=== PATIENT | male | born 1945 | race Caucasian/White ===

== ENCOUNTER → 2016-08-08 | Outpatient (CLI) | payer MEDICARE, OTHER ==
[2016-08-08 11:42] LABS: CREATININE RESULT 0.64 mg/dL (0.52-1.25)
== END ==
LOC: OD 10:29
PROVIDERS: ATTEND Urology
DX: C67.9 Malignant neoplasm of bladder, unspecified (principal); C61 Malignant neoplasm of prostate
CPT/HCPCS: 36415; 82565; 84153

== ENCOUNTER → 2016-08-23 | Outpatient (CLI) | payer MEDICARE, OTHER | LOC: RAD 08:19 | PROVIDERS: ATTEND Urology | DX: R31.29 Other microscopic hematuria (principal) | CPT/HCPCS: 74177 ==

== ENCOUNTER 2016-10-15 09:54 | Emergency (ER) | payer OTHER, MEDICARE ==
--- NOTE | 2016-10-15 10:11 | ER Document Report ---
ED Medical Screen (RME) - General Stated Complaint: DIFFICULTY BREATHING Mode of Arrival: Ambulatory Information source: Patient Notes: Patient presents to the emergency department with complaints of shortness of breath. He reports the SOB comes and goes. Patient had shoulder replacement on October 03. Patient denies chest pain. No other complaints such as vomiting diarrhea. Patient does have a cardiac history. I have consulted the attending provider per [facility] guidelines I have greeted and performed a rapid initial assessment of this patient. A comprehensive ED assessment and evaluation of the patient, analysis of test results and completion of the medical decision making process will be conducted by additional ED providers. TRAVEL OUTSIDE OF THE [place] IN LAST 30 DAYS: No - Related Data Allergies/Adverse Reactions: morphine Allergy (Verified 10/15/16 10:09) Penicillins Allergy (Verified 10/15/16 10:09) Physical Exam - Vital signs Vitals: Temp Pulse Resp BP Pulse Ox 97.8 F 73 16 147/74 H 94 10/15/16 10:02 10/15/16 10:02 10/15/16 10:02 10/15/16 10:02 10/15/16 10:02 Course - Vital Signs Vital signs: Temp Pulse Resp BP Pulse Ox 97.8 F 73 16 147/74 H 94 10/15/16 10:02 10/15/16 10:02 10/15/16 10:02 10/15/16 10:02 10/15/16 10:02
[2016-10-15] MEDS ORDERED: IPRATROPIUM/ALBUTEROL 0.5-2.5 MG/3 ML AMPUL NEB ONE (10:40)
[2016-10-15 10:58] LABS: ABSOLUTE BASOPHILS # (AUTO) 0.1 10^3/uL (0.0-0.2); ABSOLUTE EOSINOPHILS # (AUTO) 0.3 10^3/uL (0.0-0.6); ABSOLUTE LYMPHOCYTES (AUTO) 2.7 10^3/uL (0.5-4.7); ABSOLUTE NEUT (AUTO) 6.8 10^3/uL (1.7-8.2); BASOPHILS % (AUTO) 0.7 % (0-2); HEMATOCRIT 37.6 % (37.9-51.0); HEMOGLOBIN 12.4 g/dL (13.5-17.0); HGB HCT DIFFERENCE -0.4; LYMPHOCYTES % (AUTO) 24.9 % (13-45); MEAN CORPUSCULAR HEMOGLOBIN 30.9 pg (27.0-33.4); MEAN CORPUSCULAR HGB CONC 32.9 g/dL (32.0-36.0); MEAN CORPUSCULAR VOLUME 94 fl (80-97); MONOCYTES % (AUTO) 9.1 % (3-13); RED CELL DISTRIBUTION WIDTH 14.1 % (11.5-14.0); SEGMENTED NEUTROPHILS % (AUTO) 62.3 % (42-78); WHITE BLOOD COUNT 10.9 10^3/uL (4.0-10.5)
[2016-10-15 11:13] LABS: ALANINE AMINOTRANSFERASE 63 U/L (21-72); ALBUMIN 3.7 g/dL (3.5-5.0); ALKALINE PHOSPHATASE 60 U/L (38-126); ANION GAP 9 (5-19); ASPARTATE AMINO TRANSFERASE 35 U/L (17-59); BILIRUBIN,TOTAL 0.9 mg/dL (0.2-1.3); BLOOD UREA NITROGEN 16 mg/dL (7-20); CALCIUM 9.7 mg/dL (8.4-10.2); CARBON DIOXIDE 30 mmol/L (22-30); CHLORIDE 103 mmol/L (98-107); CREATINE KINASE 282 U/L (55-170); CREATININE RESULT 0.55 mg/dL (0.52-1.25); GLUCOSE 97 mg/dL (75-110); POTASSIUM 4.2 mmol/L (3.6-5.0); TOTAL PROTEIN 6.6 g/dL (6.3-8.2)
[2016-10-15 11:14] LABS: PROTHROMBIN TIME 12.8 SEC (11.4-15.4)
[2016-10-15 11:15] LABS: PARTIAL THROMBOPLASTIN TIME 29.4 SEC (23.5-35.8)
[2016-10-15 11:25] LABS: CREATINE KINASE MB 1.05 ng/mL (<4.55)
[2016-10-15 11:26] LABS: TROPONIN I < 0.012 ng/mL
--- NOTE | 2016-10-15 13:24 | ER Document Report ---
ED General - General Chief Complaint: Shortness Of Breath Stated Complaint: DIFFICULTY BREATHING Mode of Arrival: Ambulatory TRAVEL OUTSIDE OF THE [place] IN LAST 30 DAYS: No - HPI Patient complains to provider of: shortness of breath Notes: Patient coming in with recent shoulder surgery not complaining of shortness of breath. Patient has a history of tobacco use in the past denies history of emphysema. Patient states he has been using his incentive spirometer. Patient states the shortness of breath has gradually increase with more frequent episodes over the last few days. Denies chest pain denies fevers chills nausea vomiting diarrhea abdominal pain. - Related Data Allergies/Adverse Reactions: morphine Allergy (Verified 10/15/16 10:09) Penicillins Allergy (Verified 10/15/16 10:09) Past Medical History - General Information source: Patient - Social History Smoking Status: Unknown if Ever Smoked Chew tobacco use (# tins/day): No Frequency of alcohol use: None Drug Abuse: None Family History: Reviewed & Not Pertinent Patient has suicidal ideation: No Patient has homicidal ideation: No - Past Medical History Cardiac Medical History: Reports: Hx Hypercholesterolemia, Hx Hypertension Renal/ Medical History: Denies: Hx Peritoneal Dialysis Past Surgical History: Reports: Hx Appendectomy, Hx Orthopedic Surgery, Hx Tonsillectomy Review of Systems - Review of Systems Constitutional: No symptoms reported EENT: No symptoms reported Cardiovascular: No symptoms reported Respiratory: Short of breath Gastrointestinal: No symptoms reported Genitourinary: No symptoms reported Male Genitourinary: No symptoms reported Musculoskeletal: No symptoms reported Skin: No symptoms reported Hematologic/Lymphatic: No symptoms reported Neurological/Psychological: No symptoms reported -: Yes All other systems reviewed and negative Physical Exam - Vital signs Vitals: Temp Pulse Resp BP Pulse Ox 97.8 F 73 16 147/74 H 94 10/15/16 10:02 10/15/16 10:02 10/15/16 10:02 10/15/16 10:02 10/15/16 10:02 Interpretation: Normal - General General appearance: Appears well, Alert - HEENT Head: Normocephalic, Atraumatic Eyes: Normal Pupils: PERRL - Respiratory Respiratory status: No respiratory distress Chest status: Nontender Breath sounds: Normal Chest palpation: Normal - Cardiovascular Rhythm: Regular Heart sounds: Normal auscultation Murmur: No - Abdominal Inspection: Normal Distension: No distension Bowel sounds: Normal Tenderness: Nontender Organomegaly: No organomegaly - Back Back: Normal, Nontender - Extremities General upper extremity: Normal color, Normal ROM, Normal temperature. No: Normal inspection - Left Shoulder in sling from surgery no signs of infection, Nontender - Postsurgical tenderness left shoulder General lower extremity: Normal inspection, Nontender, Normal color, Normal ROM , Normal temperature, Normal weight bearing. No: Dunia's sign - Neurological Neuro grossly intact: Yes Cognition: Normal Orientation: AAOx4 Pedro Coma Scale Eye Opening: Spontaneous Pedro Coma Scale Verbal: Oriented Pedro Coma Scale Motor: Obeys Commands Monarch Coma Scale Total: 15 Speech: Normal Motor strength normal: LUE, RUE, LLE, RLE Sensory: Normal - Psychological Associated symptoms: Normal affect, Normal mood - Skin Skin Temperature: Warm Skin Moisture: Dry Skin Color: Normal Course - Re-evaluation Re-evalutation: 10/15/16 17:57 Patient is evaluation negative EKG negative troponin negative lab work with a negative CTA. More likely patient is experiencing postoperative dyspnea from not using his incentive spirometer adequately. Patient was encouraged to use incentive spirometer. Patient was discharged home with also albuterol inhaler. 10/15/16 17:58 Ambulated without difficulty - Vital Signs Vital signs: Temp Pulse Resp BP Pulse Ox 98.0 F 73 16 146/74 H 92 10/15/16 14:15 10/15/16 14:15 10/15/16 14:15 10/15/16 14:15 10/15/16 14:15 - Laboratory Result Diagrams: 10/15/16 10:38 10/15/16 10:38 Laboratory results interpreted by me: 10/15/16 10/15/16 10:38 10:38 WBC 10.9 H RBC 4.00 L Hgb 12.4 L Hct 37.6 L RDW 14.1 H Creatine Kinase 282 H Discharge - Discharge Clinical Impression: postop dyspnea, Wheezing Condition: Good Disposition: HOME, SELF-CARE Additional Instructions: Please use the inhaler that we gave you here in the ER 2 puffs every 4 hours for shortness of breath. Please make sure that you're using your incentive spirometer 5-10 deep breaths every TV commercial. Your laboratory today and CT scan of the chest shows no signs of any significant pathology. Please follow-up with your surgeon/physician as needed. Referrals: JORGITO JARAMILLO MD [Primary Care Provider] - Follow up in 3-5 days
[2016-10-15] MEDS ORDERED: ALBUTEROL SULFATE HFA (90 MCG/PUFF) 8 GM MDI (1 MDI/ER DISP) IH ONE (13:26)
--- NOTE | 2016-10-15 13:41 | EKG REPORT ---
SEVERITY:- OTHERWISE NORMAL ECG - SINUS RHYTHM VENTRICULAR PREMATURE COMPLEX : Confirmed by: Raffaele Guaman 15-Oct-2016 13:41:15
[2016-10-15 14:26] VITALS: BP 146/74
== END 2016-10-15 14:26 | disposition home or self-care (01) ==
LOC: ER 09:54
DX: R06.02 Shortness of breath (principal); R06.00 Dyspnea, unspecified; R06.2 Wheezing; Z88.6 Allergy status to analgesic agent; Z88.0 Allergy status to penicillin
CPT/HCPCS: 93005; 94640; 99285; 36415; 82553; 82550; 85025; 85610; 85730; 80053; 84484; 71275; 93010; J3490; J7620

== ENCOUNTER → 2017-01-29 | Outpatient (CLI) | payer MEDICARE, OTHER | LOC: OD 10:56 | PROVIDERS: ATTEND Urology | DX: C61 Malignant neoplasm of prostate (principal) | CPT/HCPCS: 36415; 84153 ==

== ENCOUNTER 2018-04-13 17:48 | Inpatient (IN) | payer MEDICARE, OTHER ==
[2018-04-13] MEDS ORDERED: ASPIRIN 81 MG TABLET, CHEWABLE PO ONE (18:37)
[2018-04-13] MEDS ORDERED: NITROGLYCERIN 0.4 MG/TAB 25 TAB/BOTTLE SL PRN (18:38)
[2018-04-13] MEDS ORDERED: RINGERS SOLUTION,LACTATED 1,000 ML IV ONE (18:54)
--- NOTE | 2018-04-13 18:58 | ER Document Report ---
ED General - General Chief Complaint: Chest Pain > 30 Stated Complaint: CHEST PAIN Time Seen by Provider: 04/13/18 18:37 Notes: Patient is a 73-year-old male with a past medical history of coronary artery disease, hypertension, hyperlipidemia, who presents with palpitations, lightheadedness and chest pain that started at approximately 1700. The patient states that the symptoms started abruptly and has been ongoing since that time. He describes it as a pressure-like sensation over the left side of his chest rating into the left upper extremity. He denies a history of similar symptoms in the past. Nothing improves or worsens his pain. He notes that it has somewhat diminished since onset. He denies any unilateral leg swelling, hemoptysis, but does note some associated shortness of breath. No history of DVT or pulmonary embolus. He has not contacted his primary care doctor regarding today's concerns. TRAVEL OUTSIDE OF THE [place] IN LAST 30 DAYS: No - Related Data Allergies/Adverse Reactions: morphine Allergy (Verified 04/13/18 17:48) Penicillins Allergy (Verified 04/13/18 17:48) Past Medical History - General Information source: Patient - Social History Smoking Status: Former Smoker Frequency of alcohol use: None Drug Abuse: None Lives with: Spouse/Significant other Family History: Reviewed & Not Pertinent - Past Medical History Cardiac Medical History: Reports: Hx Hypercholesterolemia, Hx Hypertension Renal/ Medical History: Denies: Hx Peritoneal Dialysis Past Surgical History: Reports: Hx Appendectomy, Hx Orthopedic Surgery, Hx Tonsillectomy Review of Systems - Review of Systems Notes: Constitutional: Negative for fever. HENT: Negative for sore throat. Eyes: Negative for visual changes. Cardiovascular: Positive for chest pain. Respiratory: Positive for shortness of breath. Gastrointestinal: Negative for abdominal pain, vomiting or diarrhea. Genitourinary: Negative for dysuria. Musculoskeletal: Negative for back pain. Skin: Negative for rash. Neurological: Negative for headaches, weakness or numbness. 10 point ROS negative except as marked above and in HPI. Physical Exam - Vital signs Vitals: Temp Pulse Resp BP Pulse Ox 98.3 F 129 H 18 120/77 92 04/13/18 18:03 04/13/18 18:03 04/13/18 18:03 04/13/18 18:03 04/13/18 18:03 Interpretation: Tachycardic Notes: PHYSICAL EXAMINATION: GENERAL: Appears slightly uncomfortable but no acute distress HEAD: Atraumatic, normocephalic. EYES: Pupils equal round and reactive to light, extraocular movements intact, sclera anicteric, conjunctiva are normal. ENT: nares patent, oropharynx clear without exudates. Moderately dry mucous membranes. NECK: Normal range of motion, supple without lymphadenopathy LUNGS: Breath sounds clear to auscultation bilaterally and equal. No wheezes rales or rhonchi. HEART: Irregular regular tachycardia without murmurs ABDOMEN: Soft, nontender, normoactive bowel sounds. No guarding, no rebound. No masses appreciated. EXTREMITIES: Normal range of motion, no pitting or edema. No cyanosis. NEUROLOGICAL: No focal neurological deficits. Moves all extremities spontaneously and on command. PSYCH: Normal mood, normal affect. SKIN: Warm, Dry, normal turgor, no rashes or lesions noted. Course - Re-evaluation Re-evalutation: 04/13/18 18:56 Patient presents with new onset chest pain of the left side of the chest described as a squeezing, pressure-like sensation with radiation to left upper extremity with associated shortness of breath. Symptoms that started abruptly prior to arrival and have waned somewhat since that time. Patient has a history of a prior CA, stents placed 18 years ago but has had no recurrence of CA events since that time. He had a stress test in August which was noted to be normal. He denies any history of DVT or pulmonary embolus. Denies any pleuritic pain. No unilateral leg swelling. Primary concern at this point is patient does arrive quite tachycardic. Initial EKG is consistent with atrial flutter versus A. fib. Chest x-ray pending as are labs. Initial EKG without ischemic changes. Will also start the patient on diltiazem given his persistent tachycardia with associated lightheadedness and shortness of breath. Given the need for a diltiazem infusion, ongoing prominent tachycardia and chest pain the patient is considered in guarded condition and will require recurrent reassessments. 04/13/18 19:23 Patient's chest pain has effectively resolved. Waiting for diltiazem infusion to been initiated. Chest x-ray clear. Labs pending. Will continue to reassess. 04/13/18 20:52 Patient is now rate controlled, current rate in the 80s. Patient currently is completely asymptomatic, states that he feels much improved after rate control. I discussed this case with the hospitalist Dr. Garcia who is excepted the patient for admission. - Vital Signs Vital signs: Temp Pulse Resp BP Pulse Ox 98.3 F 129 H 16 112/73 94 04/13/18 18:03 04/13/18 18:03 04/13/18 20:11 04/13/18 20:11 04/13/18 20:11 - Laboratory Result Diagrams: 04/13/18 18:14 04/13/18 18:14 Laboratory results interpreted by me: 04/13/18 04/13/18 18:14 18:14 WBC 11.0 H Seg Neutrophils % 40.6 L Monocytes % 13.5 H Absolute Monocytes 1.5 H Glucose 126 H - Diagnostic Test Radiology reviewed: Image reviewed, Reports reviewed Radiology results interpreted by me: 04/13/18 19:40 Chest x-ray: No acute infiltrate or pneumothorax - EKG Interpretation by Me Additional EKG results interpreted by me: 04/13/18 19:41 Atrial fibrillation, rate 127. No ST elevations or depressions. QTC is 483. Critical Care Note - Critical Care Note Total time excluding time spent on procedures (mins): 37 Comments: Critical care time spent obtaining history from patient or surrogate, discussions with consultants, development of treatment plan with patient or surrogate, evaluation of patient's response to treatment, examination of patient , ordering and performing treatments and interventions, ordering and review of laboratory studies, re-evaluation of patient's condition, ordering and review of radiographic studies and review of old charts Discharge - Discharge Clinical Impression: Atrial fibrillation with rapid ventricular response Chest pain Qualifiers: Chest pain type: unspecified Qualified Code(s): R07.9 - Chest pain, unspecified Condition: Fair Disposition: ADMITTED INPATIENT Admitting Provider: Hospitalist Unit Admitted: Telemetry Referrals: SHINE DU MD [Primary Care Provider] - Follow up as needed
[2018-04-13] MEDS ORDERED: DILTIAZEM HCL/D5W 125 MG/125 ML RTUINJ IV PRN (19:23)
[2018-04-13] MEDS ORDERED: DILTIAZEM HCL INJ 25 MG/5 ML VIAL IV ONE (19:23)
--- NOTE | 2018-04-13 19:27 | RADIOLOGY REPORT (SQ) ---
EXAM DESCRIPTION: CHEST SINGLE VIEW COMPLETED DATE/TIME: 04/13/2018 7:01 pm REASON FOR STUDY: chest pain COMPARISON: None. EXAM PARAMETERS: NUMBER OF VIEWS: One view. TECHNIQUE: Single frontal radiographic view of the chest acquired. RADIATION DOSE: NA LIMITATIONS: None. FINDINGS: LUNGS AND PLEURA: No opacities, masses or pneumothorax. No pleural effusion. MEDIASTINUM AND HILAR STRUCTURES: No masses. Contour normal. HEART AND VASCULAR STRUCTURES: Heart normal in size. Normal vasculature. BONES: No acute findings. HARDWARE: The shoulder prosthesis. OTHER: No other significant finding. IMPRESSION: NO ACUTE RADIOGRAPHIC FINDING IN THE CHEST. TECHNICAL DOCUMENTATION: JOB ID: [id number] [employer]- All Rights Reserved Reading location - IP/workstation name: [email or web address]
[2018-04-13 19:35] LABS: ABSOLUTE BASOPHILS # (AUTO) 0.1 10^3/uL (0.0-0.2); ABSOLUTE EOSINOPHILS # (AUTO) 0.6 10^3/uL (0.0-0.6); ABSOLUTE LYMPHOCYTES (AUTO) 4.4 10^3/uL (0.5-4.7); ABSOLUTE MONOCYTES (AUTO) 1.5 10^3/uL (0.1-1.4); ABSOLUTE NEUT (AUTO) 4.4 10^3/uL (1.7-8.2); EOSINOPHILS % (AUTO) 5.2 % (0-6); HEMATOCRIT 44.9 % (37.9-51.0); HEMOGLOBIN 15.7 g/dL (13.5-17.0); LYMPHOCYTES % (AUTO) 39.7 % (13-45); MEAN CORPUSCULAR HEMOGLOBIN 33.4 pg (27.0-33.4); MEAN CORPUSCULAR HGB CONC 34.9 g/dL (32.0-36.0); MEAN CORPUSCULAR VOLUME 96 fl (80-97); MONOCYTES % (AUTO) 13.5 % (3-13); PLATELET COUNT 287 10^3/uL (150-450); RED BLOOD COUNT 4.69 10^6/uL (4.35-5.55); RED CELL DISTRIBUTION WIDTH 13.9 % (11.5-14.0); SEGMENTED NEUTROPHILS % (AUTO) 40.6 % (42-78); TOTAL CELLS COUNTED % (AUTO) 100 %
[2018-04-13 19:40] LABS: INTERNATIONAL RATION (INR) 0.86; PROTHROMBIN TIME 12.2 SEC (11.4-15.4)
[2018-04-13 19:41] LABS: PARTIAL THROMBOPLASTIN TIME 28.5 SEC (23.5-35.8)
[2018-04-13] MEDS ORDERED: DILTIAZEM HCL/D5W 125 MG/125 ML RTUINJ IV ONE (19:42)
[2018-04-13 20:02] LABS: BLOOD UREA NITROGEN 17 mg/dL (7-20)
[2018-04-13 20:26] LABS: ANION GAP 11 (5-19); CALCIUM 8.9 mg/dL (8.4-10.2); CARBON DIOXIDE 25 mmol/L (22-30); CHLORIDE 103 mmol/L (98-107); GLUCOSE 126 mg/dL (75-110); POTASSIUM 4.2 mmol/L (3.6-5.0); SODIUM 138.6 mmol/L (137-145)
[2018-04-13] MEDS ORDERED: PROMETHAZINE HCL 25 MG TABLET PO PRN (21:58)
[2018-04-13] MEDS ORDERED: MAG HYDROX/AL HYDROX/SIMETH SUSP 30 ML UDCUP PO PRN (21:58)
[2018-04-13] MEDS ORDERED: ACETAMINOPHEN 325 MG TABLET PO PRN (21:58)
[2018-04-13] MEDS ORDERED: TEMAZEPAM 7.5 MG CAPSULE PO PRN (21:58)
[2018-04-13] MEDS ORDERED: PROMETHAZINE HCL INJ 25 MG/1 ML VIAL IV PRN (21:58)
[2018-04-13] MEDS ORDERED: DILTIAZEM HCL 30 MG TABLET PO ONE (22:45)
--- NOTE | 2018-04-13 22:47 | EKG REPORT ---
SEVERITY:- ABNORMAL ECG - SINUS TACHYCARDIA. 127 BORDERLINE PROLONGED QT INTERVAL NONSPECIFIC ST-T CHANGES ANTEROLATERAL ST CHANGES. : Confirmed by: Cortez Angelo MD 13-Apr-2018 22:46:22
--- NOTE | 2018-04-13 22:53 | PDOC H&P ---
History of Present Illness Admission Date/PCP: 04/13/18 21:28 SHINE DU MD (urologist) Patient complains of: palpitations History of Present Illness: JOSUE LLOYD is a 73 year old male tells me that around 5 PM he was playing video games in the computer when suddenly he started with left chest side tightness, radiated to the left shoulder, 67/10 intensity, associated with palpitations. He took his pulse and noted that was elevated, he does not know how high was it. He took 2 nitroglycerin and the pain relief a little bit. Denies any similar symptoms in the past. Symptoms were associated with the dizziness and at some point felt like a blackout. Denies nausea, vomiting, diarrhea, fever, chills, patient has a urostomy bag secondary to bladder cancer. Has history of [place] in 1999 with 2 stents placed in [place]. Was initiated on Cardizem drip and her current heart rate is around 90s. Patient declines any form of anticoagulation or antiplatelets including aspirin as gave him a very bad bleeding. Past Medical History Cardiac Medical History: Reports: Coronary Artery Disease, Myocardial Infarction - 1999 with 12 stents placed, Hyperlipidema, Hypertension EENT Medical History: Reports: Ears - Hearing impairment Neurological Medical History: Reports: Other - Lower body neuropathy Spondylolisthesis Plantar fasciitis Malignancy Medical History: Reports: Other - Bladder cancer Prostate cancer Musculoskeltal Medical History: Reports: Other - Hammertoe Rotator cuff Psychiatric Medical History: Reports: Post Traumatic Stress Disorder Past Surgical History Past Surgical History: Radical cystectomy 2009 Radical [id number] Spondylolisthesis surgery Left shoulder replacement 2017 Past Surgical History: Reports: Appendectomy, Orthopedic Surgery, Splenectomy, Tonsillectomy, Other - Tonsillectomy Left rotator cuff knee Arthroscopy Bladder cystectomy Social History Lives with: Spouse/Significant other Smoking Status: Former Smoker Frequency of Alcohol Use: None Hx Recreational Drug Use: No Family History Family History: Reviewed & Not Pertinent Parental Family History Reviewed: Yes Children Family History Reviewed: NA Sibling(s) Family History Reviewed.: NA Medication/Allergy Allergies/Adverse Reactions: morphine Allergy (Verified 04/13/18 17:48) Penicillins Allergy (Verified 04/13/18 17:48) Review of Systems Review of Systems: As outlined in the HPI, others negative Physical Exam Vital Signs: Temp Pulse Resp BP Pulse Ox 98.3 F 129 H 19 116/49 L 95 04/13/18 18:03 04/13/18 18:03 04/13/18 21:41 04/13/18 21:41 04/13/18 21:41 Additional comments: General appearance: Well-developed, well-nourished, alert and cooperative, and appears to be in no acute distress Head: Normocephalic Eyes: PEERL, EOMI, vision is grossly intact. Ears: External auditory canal and tympanic membranes clear, hearing grossly intact. Nose: No nasal discharge. Throat: Oral cavity and pharynx normal. No inflammation, swelling, exudate or lesions. Neck: Neck supple, nontender without lymphadenopathy, masses or thyromegaly. Cardiac: Normal S1 and S2. No S3, S4 or murmurs. Rhythm is irregular and mild tachycardic. There is no peripheral edema, cyanosis or pallor. Extremities are warm and well perfused. Capillary refill is less than 2 seconds. No carotid bruits. Lungs: Clear to auscultation and percussion without rales, rhonchi, wheezing or diminished breath sounds. Not using accessory muscles. Abdomen: Positive bowel sounds. Soft. Nondistended, nontender. No guarding or rebound. No masses. No hepatosplenomegaly Extremities: No significant deformity or joint abnormality. No edema. Peripheral pulses intact. No varicosities. Neurological: Cranial nerves II through XII grossly intact. Strength and sensation symmetric and intact throughout. Reflexes 2+ throughout. Skin: Skin normal color, texture and turgor with no lesions or eruptions, warm and dry. Psychiatric: The mental examination revealed the patient was oriented to person , place, and time. The patient was able to demonstrate good judgment on recent , without hallucinations, abnormal affect or abnormal behaviors. Results Laboratory Results: 04/13/18 04/13/18 04/13/18 18:14 18:14 18:14 WBC 11.0 H RBC 4.69 Hgb 15.7 Hct 44.9 MCV 96 MCH 33.4 MCHC 34.9 RDW 13.9 Plt Count 287 Seg Neutrophils % 40.6 L Lymphocytes % 39.7 Monocytes % 13.5 H Eosinophils % 5.2 Basophils % 1.0 Absolute Neutrophils 4.4 Absolute Lymphocytes 4.4 Absolute Monocytes 1.5 H Absolute Eosinophils 0.6 Absolute Basophils 0.1 PT 12.2 INR 0.86 APTT 28.5 Sodium 138.6 Potassium 4.2 Chloride 103 Carbon Dioxide 25 Anion Gap 11 BUN 17 Creatinine 0.65 Est GFR ( Amer) > 60 Est GFR (Non-Af Amer) > 60 Glucose 126 H Calcium 8.9 EKG Comments: EKG shows atrial fibrillation with a rate of 127 bpm Impressions: Chest X-Ray 04/13/18 18:38 IMPRESSION: NO ACUTE RADIOGRAPHIC FINDING IN THE CHEST. Assessment & Plan - Diagnosis (1) Atrial fibrillation with rapid ventricular response Is this a current diagnosis for this admission?: Yes Plan: New onset rapid atrial fibrillation. Initial heart rate in the 180s, was initiated on Cardizem infusion now his heart rate is in the 90s, patient is asymptomatic. We will go ahead and start him on 30 mg p.o. Cardizem sure the release followed by 120 mg p.o. Cardizem daily. Cardiology will be consulted with Dr. Ferrer. Place order for TSH, echocardiogram, cardiac enzymes 3, urine drug screen, urine analysis, lipid panel and hemoglobin A1c. CHADSVASC score is 2, however the patient declines anticoagulation and or aspirin as tells me he had a very bad bleeding. Psychology Professor Dr. Yuri Gaines in [place] (2) Hypertension Is this a current diagnosis for this admission?: Yes Plan: Continue with lisinopril (3) Hyperlipidemia Is this a current diagnosis for this admission?: Yes Plan: Continue with Lipitor - Time Time Spent: 30 to 50 Minutes - Inpatient Certification Based on my medical assessment, after consideration of the patient's comorbidities, presenting symptoms, or acuity I expect that the services needed warrant INPATIENT care.: Yes I certify that my determination is in accordance with my understanding of Medicare's requirements for reasonable and necessary INPATIENT services [42 CFR 412.3e].: Yes Medical Necessity: Need Close Monitoring Due to Risk of Patient Decompensation
[2018-04-13 23:31] LABS: APPEARANCE,URINE CLEAR; BILIRUBIN,URINE NEGATIVE (NEGATIVE); COLOR,URINE YELLOW; GLUCOSE, URINE NEGATIVE (NEGATIVE); KETONES,URINE NEGATIVE (NEGATIVE); LEUKOCYTE ESTERASE,URINE NEGATIVE (NEGATIVE); NITRITE,URINE NEGATIVE (NEGATIVE); PROTEIN,URINE 30 mg/dL (NEGATIVE); URINE SPECIFIC GRAVITY 1.014; UROBILINOGEN,URINE NEGATIVE mg/dL (<2.0)
[2018-04-13 23:59] LABS: URINE AMPHETAMINES SCREEN NEGATIVE; URINE BARBITURATES SCREEN NEGATIVE; URINE BENZODIAZEPINES SCREEN NEGATIVE; URINE COCAINE SCREEN NEGATIVE; URINE MARIJUANA (THC) SCREEN NEGATIVE; URINE METHADONE SCREEN NEGATIVE; URINE PHENCYCLIDINE SCREEN NEGATIVE
[2018-04-14 06:19] LABS: INTERNATIONAL RATION (INR) 0.93; PARTIAL THROMBOPLASTIN TIME 29.2 SEC (23.5-35.8); PROTHROMBIN TIME 12.9 SEC (11.4-15.4)
[2018-04-14 06:37] LABS: ANION GAP 7 (5-19); BLOOD UREA NITROGEN 14 mg/dL (7-20); CARBON DIOXIDE 25 mmol/L (22-30); CHLORIDE 107 mmol/L (98-107); GLUCOSE 96 mg/dL (75-110); PHOSPHORUS 3.7 mg/dL (2.5-4.5); POTASSIUM 4.3 mmol/L (3.6-5.0); SODIUM 139.2 mmol/L (137-145); TRIGLYCERIDES 195 mg/dL (<150)
[2018-04-14 06:48] LABS: DIRECT LDL 77 mg/dL (<100)
[2018-04-14] MEDS ORDERED: DILTIAZEM HCL 120 MG CAP.SR.24H PO SCH (10:00)
[2018-04-14] MEDS ORDERED: DILTIAZEM HCL INJ 25 MG/5 ML VIAL IV PRN (11:09)
[2018-04-14] MEDS ORDERED: DRONEDARONE HYDROCHLORIDE 400 MG TABLET PO SCH (11:30)
[2018-04-14] MEDS ORDERED: APIXABAN 5 MG TABLET PO SCH (11:30)
[2018-04-14 15:27] VITALS: BP 127/73
--- NOTE | 2018-04-14 19:48 | PDOC DISCHARGE SUMMARY ---
General - Admit/Disc Date/PCP Admission Date/Primary Care Provider: 04/13/18 21:28 SHINE DU MD Discharge Date: 04/14/18 - Discharge Diagnosis (1) Atrial fibrillation with rapid ventricular response Is this a current diagnosis for this admission?: Yes Summary: Maciejs heart rate was well controlled in the emergency room with medication. His dyspnea and discomfort associated with the rapid heart rate including the palpitations and some chest pressure resolved at the same time as his heart rate slowed. He has been feeling well since the time that his heart rate was slowed in the emergency room and expresses a strong desire to be discharged home today and he is willing to follow-up with her personalized living manager as an outpatient in the future but he does not wish to be in the hospital today unless it is required for his overall health. As such we have discussed the treatment that is received and what will need to be provided in the future and he is willing to go home today and take his medication as prescribed and follow- up with his primary care physician and personalized living manager for further evaluation and treatment including an echocardiogram and a stress test. (2) Chest pain Is this a current diagnosis for this admission?: Yes Summary: Ruben chest pain resolved immediately when his heart rate was slowed in the emergency room with Cardizem drip. He has not had any recurrence of the chest pain since that time and he wishes to be discharged home as discussed above. Discussion was undertaken informing him that his cardiac enzymes were negative for any evidence of injury or ischemia and his EKG showed no acute changes that would evidence injury or ischemia. After this discussion the patient firmly announce that he wished to be discharged home. - Additional Information Discharge Diet: Cardiac Discharge Activity: Activity As Tolerated Prescriptions: Apixaban [Eliquis 5 mg Tablet] 5 mg PO Q12 30 Days #60 tablet Diltiazem HCl [Diltiazem 24Hr ER] 180 mg PO DAILY 30 Days #30 cap.er.24h Home Medications: Amitriptyline HCl [Elavil 10 mg Tablet] 1 - 5 tab PO QHS 04/14/18 Apixaban [Eliquis 5 mg Tablet] 5 mg PO Q12 30 Days #60 tablet 04/14/18 Ascorbic Acid [Vitamin C] 1,000 mg PO QPM 04/14/18 Aspirin [Aspirin EC] 81 mg PO Q2D 04/14/18 Atorvastatin Calcium [Lipitor 40 mg Tablet] 40 mg PO QPM 04/14/18 Cholecalciferol (Vitamin D3) [Vitamin D3] 1,000 unit PO QPM 04/14/18 Clobetasol Propionate [Clobetasol Propionate Cream] 1 applic TP PRN PRN Diltiazem HCl [Diltiazem 24Hr ER] 180 mg PO DAILY 30 Days #30 cap.er.24h Docusate Sodium [Colace 100 mg Capsule] 100 mg PO PRN PRN 04/14/18 Ferrous Sulfate [Feosol] 325 mg PO QPM 04/14/18 Flaxseed Oil 1,000 mg PO QPM 04/14/18 Fluticasone Propionate [Flonase Nasal [place] 50 Mcg/[place] 16 gm] 2 sprays NASL DAILY 04/14/18 Ketoconazole [Nizoral] 1 applic TP Q2D 04/14/18 Lisinopril [Prinivil] 20 mg PO QAM 04/14/18 Meloxicam [Mobic] 7.5 mg PO DAILY 04/14/18 Omeprazole 20 mg PO QAM 04/14/18 Vitamin E 1,000 unit PO QPM 04/14/18 Zolpidem Tartrate [Ambien] 10 mg PO QHS 04/14/18 History of Present Illness Patient complains of: Palpitations History of Present Illness: EDDIE LLOYD is a 73 year old male who developed mild to moderate left-sided chest tightness which radiated to his left shoulder around 5 PM on the day of admission while he was playing video games on the computer. The pain was of sudden onset and was associated with palpitations and a rapid heart rate. He took 2 nitroglycerin at home with minimal relief decided to come to the emergency room for further evaluation. He denies having similar prior episodes and states that he had been well up until that time. He had no nausea, vomiting , diaphoresis or dyspnea. He did admit that he had some near syncope with dizziness and lightheadedness making him feel like he was going to blackout. He came the emergency room for attention and there he was treated with a Cardizem drip probably bring his rate down to the 80s and 90s and completely alleviating all of his other symptoms. Hospital Course Hospital Course: Eddie has remained asymptomatic since his emergency room treatment. He has had serial cardiac enzymes which were negative and upon having this information related to him he has decided that he would like to be discharged home for outpatient follow-up with his own physicians. Since there is no definite need to keep patient and he is agreeing to follow-up on an outpatient basis he will be discharged today in improved and stable condition at his request. Physical Exam Vital Signs: Temp Pulse Resp BP Pulse Ox 97.6 F 85 16 127/73 H 95 04/14/18 15:22 04/14/18 15:22 04/14/18 15:22 04/14/18 15:22 04/14/18 15:22 Intake & Output 04/13/18 04/14/18 04/15/18 06:59 06:59 06:59 Intake Total 15 840 Balance 15 840 Weight 222.2 kg General appearance: PRESENT: no acute distress, cooperative Head exam: PRESENT: atraumatic, normocephalic Eye exam: PRESENT: conjunctiva pink. ABSENT: conjunctival injection Ear exam: PRESENT: normal external ear exam. ABSENT: drainage Mouth exam: PRESENT: moist, neck supple, tongue midline Neck exam: ABSENT: thyromegaly, tracheal deviation Respiratory exam: PRESENT: clear to auscultation monik, symmetrical, unlabored Cardiovascular exam: PRESENT: irregular rhythm. ABSENT: bradycardia, clicks, diastolic murmur, gallop, rubs, systolic murmur, tachycardia Pulses: PRESENT: normal carotid pulses, normal radial pulses, normal dorsalis pedis pul Vascular exam: PRESENT: normal capillary refill. ABSENT: pallor GI/Abdominal exam: PRESENT: normal bowel sounds, soft, other - Ureterostomy noted. Extremities exam: ABSENT: joint swelling, pedal edema Musculoskeletal exam: PRESENT: full ROM, normal inspection Neurological exam: PRESENT: alert, awake, oriented to person, oriented to place , oriented to time, oriented to situation, CN II-XII grossly intact. ABSENT: motor sensory deficit Psychiatric exam: PRESENT: appropriate affect, normal mood Skin exam: ABSENT: jaundice, rash, urticaria Results Laboratory Results: 04/14/18 06:02 04/13/18 04/14/18 22:45 06:02 Sodium 139.2 Potassium 4.3 Chloride 107 Carbon Dioxide 25 Anion Gap 7 BUN 14 Creatinine 0.58 Est GFR ( Amer) > 60 Est GFR (Non-Af Amer) > 60 Glucose 96 Calcium 9.0 Phosphorus 3.7 Magnesium 1.8 Triglycerides 195 H Cholesterol 153.20 LDL Cholesterol Direct 77 VLDL Cholesterol 39.0 H HDL Cholesterol 40 Urine Color YELLOW Urine Appearance CLEAR Urine pH 7.0 Ur Specific [place] 1.014 Urine Protein 30 H Urine Glucose (UA) NEGATIVE Urine Ketones NEGATIVE Urine Blood NEGATIVE Urine Nitrite NEGATIVE Ur Leukocyte Esterase NEGATIVE Urine WBC (Auto) 4 Urine RBC (Auto) 5 04/14/18 04/14/18 04/14/18 00:32 06:02 12:44 Troponin I < 0.012 < 0.012 < 0.012 Impressions: Chest X-Ray 04/13/18 18:38 IMPRESSION: NO ACUTE RADIOGRAPHIC FINDING IN THE CHEST. Qualifiers - * PATIENT BEING DISCHARGED WITH ANY OF THE FOLLOWING DIAGNOSIS: No Plan Discharge Plan: Discharged home in improved and stable condition Time Spent: Greater than 30 Minutes
--- NOTE | 2018-04-14 21:48 | PDOC CONSULTATION ---
Consultation Consult Date: 04/14/18 Attending physician:: TRIPP GR Consult reason:: A FIB History of Present Illness Admission Date/PCP: 04/13/18 21:28 SHINE DU MD Patient complains of: Chest pain History of Present Illness: JOSUE LLOYD is a 73 year old male tells me that around 5 PM he was playing video games in the computer when suddenly he started with left chest side tightness, radiated to the left shoulder, 6-7/10 intensity, associated with palpitations. He took his pulse and noted that was elevated, he does not know how high was it. He took 2 nitroglycerin and the pain relief a little bit. Denies any similar symptoms in the past. Symptoms were associated with the dizziness and at some point felt like a blackout. Denies nausea, vomiting, diarrhea, fever, chills, patient has a urostomy bag secondary to bladder cancer. Has history of SD in 1999 with 2 stents placed in [place]. Was initiated on Cardizem drip and her current heart rate is around 90s. Patient declines any form of anticoagulation or antiplatelets including aspirin as gave him a very bad bleeding. This history was reviewed with the patient and confirmed. Currently patient is chest pain-free. Patient claims that since his last stent procedure he has done reasonably well. He claims that I did see him sometimes in the past but has not followed up with me in a long time. Past Medical History Cardiac Medical History: Reports: Coronary Artery Disease, Myocardial Infarction - 1999 with 12 stents placed, Hyperlipidema, Hypertension EENT Medical History: Reports: Ears - Hearing impairment Neurological Medical History: Reports: Other - Lower body neuropathy Spondylolisthesis Plantar fasciitis Malignancy Medical History: Reports: Other - Bladder cancer Prostate cancer Musculoskeltal Medical History: Reports: Other - Hammertoe Rotator cuff Psychiatric Medical History: Reports: Post Traumatic Stress Disorder Past Surgical History Past Surgical History: Reports: Appendectomy, Orthopedic Surgery, Splenectomy, Tonsillectomy, Other - Tonsillectomy Left rotator cuff knee Arthroscopy Bladder cystectomy Social History Information Source: Patient Lives with: Spouse/Significant other Smoking Status: Never Smoker Frequency of Alcohol Use: Occasional Hx Recreational Drug Use: No Drugs: None Hx Prescription Drug Abuse: No - Advance Directive Resuscitation Status: Full Code Surrogate healthcare decision maker:: Patient's is the surrogate decision-maker Family History Family History: CAD, Hypertension Parental Family History Reviewed: Yes Children Family History Reviewed: Yes Sibling(s) Family History Reviewed.: Yes Medication/Allergy Home Medications: Amitriptyline HCl [Elavil 10 mg Tablet] 1 - 5 tab PO QHS 04/14/18 Apixaban [Eliquis 5 mg Tablet] 5 mg PO Q12 30 Days #60 tablet 04/14/18 Ascorbic Acid [Vitamin C] 1,000 mg PO QPM 04/14/18 Aspirin [Aspirin EC] 81 mg PO Q2D 04/14/18 Atorvastatin Calcium [Lipitor 40 mg Tablet] 40 mg PO QPM 04/14/18 Cholecalciferol (Vitamin D3) [Vitamin D3] 1,000 unit PO QPM 04/14/18 Clobetasol Propionate [Clobetasol Propionate Cream] 1 applic TP PRN PRN Diltiazem HCl [Diltiazem 24Hr ER] 180 mg PO DAILY 30 Days #30 cap.er.24h Docusate Sodium [Colace 100 mg Capsule] 100 mg PO PRN PRN 04/14/18 Ferrous Sulfate [Feosol] 325 mg PO QPM 04/14/18 Flaxseed Oil 1,000 mg PO QPM 04/14/18 Fluticasone Propionate [Flonase Nasal [place] 50 Mcg/[place] 16 gm] 2 sprays NASL DAILY 04/14/18 Ketoconazole [Nizoral] 1 applic TP Q2D 04/14/18 Lisinopril [Prinivil] 20 mg PO QAM 04/14/18 Meloxicam [Mobic] 7.5 mg PO DAILY 04/14/18 Omeprazole 20 mg PO QAM 04/14/18 Vitamin E 1,000 unit PO QPM 04/14/18 Zolpidem Tartrate [Ambien] 10 mg PO QHS 04/14/18 Allergies/Adverse Reactions: morphine Allergy (Verified 04/13/18 17:48) Penicillins Allergy (Verified 04/13/18 17:48) Review of Systems Review of Systems: Please see history of present illness and past medical history as wall. Constitutional: No fever or chills reported. Head : No recent chronic headaches, recent head injury. Eyes: No recent eye pain, diplopia, redness, discharge, acute visual changes. Ears: No recent chronic ear pain, acute hearing loss, ear discharge. Oral cavity: No recent ulcerations, bleeding, oral cavity discomfort. Neck: No recent acute neck pain reported. Hematologic: No recent easy bruising or bleeding. Lymphatic: No recent lymph node enlargement reported. Cardiovascular system review: See history of present illness. Respiratory system review: No hemoptysis or blood clots in the lungs reported. Mild Shortness of breath on exertion Gastrointestinal system review: Negative for any recent acute hematemesis, melena. Genitourinary system review: History of urologic malignancy and status post urostomy. Denying any recent hematuria, renal colic Skin system review: Negative for any recent abnormal bruising, no rash, no pruritus reported. Neurologic: No prior history of strokes, mini strokes, seizure disorder. Psychologic: No history of major psychosis or major depression reported. Musculoskeletal: Minor aches and pains reported. No acute joint swelling reported. Endocrine: No recent polyuria, polydipsia, recent heat or cold intolerance. Physical Exam Vital Signs: Temp Pulse Resp BP Pulse Ox 97.6 F 85 16 127/73 H 95 04/14/18 15:22 04/14/18 15:22 04/14/18 15:22 04/14/18 15:22 04/14/18 15:22 Intake & Output 04/13/18 04/14/18 04/15/18 06:59 06:59 06:59 Intake Total 15 840 Balance 15 840 Weight 222.2 kg Exam: GENERAL: well-nourished and in no acute distress. Alert and oriented x3 HEAD: Atraumatic, normocephalic. EYES: Pupils equal round and reactive to light, extraocular movements intact, sclera anicteric, conjunctiva are normal. ENT: TMs normal, nares patent, oropharynx clear without exudates. Moist mucous membranes. No oral ulcerations or bleeding gums noted NECK: supple without lymphadenopathy. Trachea is central. No cervical or axillary lymphadenopathy noted. Carotids are 2+, JVD WNL LUNGS: Respiration seems nonlabored, no significant accessory muscle action noted. Breath sounds clear to auscultation bilaterally and equal noted. No wheezes rales or rhonchi noted. No significant dullness noted on percussion. CHEST: Palpation of the chest wall shows no significant chest wall tenderness. HEART: [place] [employer], No PSH, 1/6 GRABIEL aortic area, 1/6 [place] systolic murmur mitral area, no rubs, no gallops. ABDOMEN: Soft, no significant tenderness appreciated, normoactive bowel sounds. No guarding, no rebound. No rigidity noted . No masses appreciated. Urostomy bag noted EXTREMITIES: Pedal pulses are 1-2+, no calf tenderness noted. No clubbing or cyanosis. negative pedal edema noted NEUROLOGICAL: Focused neurological exam showed no significant neurologic deficit. Normal speech, no focal weakness appreciated. PSYCH: Normal mood, normal affect. Judgment and insight within normal limits. SKIN: No significant ecchymosis, skin is noted to be warm. MUSCULOSKELETAL EXAM: No significant acute joint swelling noted. Results Laboratory Results: 04/14/18 06:02 04/13/18 04/14/18 22:45 06:02 Sodium 139.2 Potassium 4.3 Chloride 107 Carbon Dioxide 25 Anion Gap 7 BUN 14 Creatinine 0.58 Est GFR ( Amer) > 60 Est GFR (Non-Af Amer) > 60 Glucose 96 Calcium 9.0 Phosphorus 3.7 Magnesium 1.8 Triglycerides 195 H Cholesterol 153.20 LDL Cholesterol Direct 77 VLDL Cholesterol 39.0 H HDL Cholesterol 40 Urine Color YELLOW Urine Appearance CLEAR Urine pH 7.0 Ur Specific [place] 1.014 Urine Protein 30 H Urine Glucose (UA) NEGATIVE Urine Ketones NEGATIVE Urine Blood NEGATIVE Urine Nitrite NEGATIVE Ur Leukocyte Esterase NEGATIVE Urine WBC (Auto) 4 Urine RBC (Auto) 5 04/14/18 04/14/18 04/14/18 00:32 06:02 12:44 Troponin I < 0.012 < 0.012 < 0.012 EKG Comments: Initial EKG suggested atrial flutter with 2-1 but subsequently noted to have atrial fibrillation. No acute ST-T wave changes are noted. Impressions: Chest X-Ray 04/13/18 18:38 IMPRESSION: NO ACUTE RADIOGRAPHIC FINDING IN THE CHEST. Assessment & Plan - Diagnosis (1) Atrial fibrillation with rapid ventricular response Is this a current diagnosis for this admission?: Yes (2) Chest pain Qualifiers: Chest pain type: unspecified Qualified Code(s): R07.9 - Chest pain, unspecified Is this a current diagnosis for this admission?: Yes (3) Hyperlipidemia Qualifiers: Hyperlipidemia type: unspecified Qualified Code(s): E78.5 - Hyperlipidemia , unspecified Is this a current diagnosis for this admission?: Yes (4) Hypertension Qualifiers: Hypertension type: essential hypertension Qualified Code(s): I10 - Essential (primary) hypertension Is this a current diagnosis for this admission?: Yes (5) CAD (coronary artery disease) Qualifiers: Coronary Disease-Associated Artery/Lesion type: [place] artery [place] vs. transplanted heart: [place] heart Associated angina: angina presence unspecified Qualified Code(s): I25.10 - Atherosclerotic heart disease of [place] coronary artery without angina pectoris Is this a current diagnosis for this admission?: Yes - Notes Notes: 2 D Echo Nuclear stress testAtrial fibrillation with rapid ventricular response. Recommend rate control with beta-rose preferred. Could also use Cardizem. Recommend chronic anticoagulation. Have advised patient to undergo 2D echo and a nuclear stress test to evaluate this further since he also has chest pain. Chest pain: Most likely related to underlying CAD. Atrial fibrillation with rapid ventricular response may have caused supply demand mismatch causing this. This was explained to the patient. Did advise patient to undergo a nuclear stress test and this was scheduled. Hypertension: Blood pressure goal is 140/90 in this elderly gentleman. Currently reasonably well controlled. Hyperlipidemia: LDL goal is less than 70. Currently at goal. Coronary artery disease: Patient has chest pain. This could be symptomatic of progression of CAD. Have advised patient a nuclear stress test. - Time Time Spent: 30 to 50 Minutes - More than 50% of the time spent coordinating care , discussing management plans with involved caregivers. Management plans discussed with involved personnels. Medical decision making was of moderate to high complexity, patient's has multiple comorbidities. Medications reviewed and adjusted accordingly: Yes
--- NOTE | 2018-04-14 22:53 | EKG REPORT ---
SEVERITY:- BORDERLINE ECG - A FIB BORDERLINE T ABNORMALITIES, INFERIOR LEADS : Confirmed by: Raffaele Guaman 14-Apr-2018 22:53:14
== END 2018-04-14 15:30 | disposition home or self-care (01) | DRG 309 ==
LOC: ER 17:48 → EH 21:28 → 3W 04-14 01:51
PROVIDERS: ADMIT Internal Medicine; ATTEND Internal Medicine
DX: I48.91 Unspecified atrial fibrillation (principal); Z68.45 Body mass index [BMI] 70 or greater, adult; I25.10 Atherosclerotic heart disease of native coronary artery without angina pectoris; E66.01 Morbid (severe) obesity due to excess calories; E78.00 Pure hypercholesterolemia, unspecified; I10 Essential (primary) hypertension; F43.10 Post-traumatic stress disorder, unspecified; I25.2 Old myocardial infarction; Z90.79 Acquired absence of other genital organ(s); Z90.81 Acquired absence of spleen; Z79.82 Long term (current) use of aspirin; Z79.899 Other long term (current) drug therapy; Z93.6 Other artificial openings of urinary tract status; Z95.5 Presence of coronary angioplasty implant and graft; Z87.891 Personal history of nicotine dependence; Z85.46 Personal history of malignant neoplasm of prostate; Z85.51 Personal history of malignant neoplasm of bladder; Z88.6 Allergy status to analgesic agent; Z88.0 Allergy status to penicillin; Z82.49 Family history of ischemic heart disease and other diseases of the circulatory system
CPT/HCPCS: 36415; 71045; 80048; 80061; 80307; 81001; 83036; 83735; 83880; 84100; 84443; 84484; 85025; 85610; 85730; 93005; 93010; 93306; 96361; 96365; 96376; 99291; J3490; J7120